=== PATIENT | male | born 1995 | race Caucasian/White ===

== ENCOUNTER 2020-04-26 08:20 | Emergency (ER) | payer BC, SELFPAY ==
[2020-04-26 08:22] VITALS: BP 137/83; PULSE 88; RESP 18; TEMP 36.9; O2SAT 99; BMI 28.7
--- NOTE | 2020-04-26 08:31 | US_ITS ---
EXAMINATION: US SCROTUM CLINICAL INFORMATION: 24-year-old with scrotal pain. COMPARISON: None TECHNIQUE: A sonogram of the scrotum was performed assessing reno-scale appearance and color Doppler flow. Spectral Doppler analysis of the arterial and venous flow were performed in the testes bilaterally. FINDINGS: RIGHT: Right testicle measures 5.2 x 2.3 x 3.8 cm, volume 23.8 mL. No focal testicular parenchymal lesions are visualized. There is normal low resistance intratesticular waveform and presence of venous flow. No torsion. Right epididymal head is normal in size. No right hydrocele or varicocele is seen. Right epididymal color flow is unremarkable. LEFT: Left testicle measures 4.8 x 2.2 x 3.5 cm, volume 19.3 mL. No focal testicular parenchymal lesions are visualized. There is normal low resistance intratesticular waveform and presence of venous flow. No torsion. Left epididymal head is normal in size. No left hydrocele or varicocele is seen. Left epididymal Doppler flow is mildly increased. US/US scrotum IMPRESSION: 1. Normal bilateral testicles with normal low resistance waveforms. No torsion. 2. Mild increased color flow left epididymis which may suggest mild epididymitis. No epididymal enlargement or hydrocele.
--- NOTE | 2020-04-26 08:31 | ED_ITS ---
HPI - Male Genitourinary General Chief complaint: Urogenital-Male Stated complaint: testicular pain Time Seen by Provider: 04/26/20 08:28 Source: patient Mode of arrival: ambulatory Limitations: no limitations History of Present Illness HPI Narrative: 24 y/o healthy male presenting with testicular pain x2 days. He states he noticed discomfort in his right testicle while he was at work 2 days ago. Described as a constant, dull ache. The pain then migrated to his left testicle and is bilateral. He noticed a fullness at the base of his scrotum. Denies lesions or mass. No urinary symptoms. He is sexually active with his only. No hx testicular pain in the past. No hx STD. MD Complaint: testicle pain Onset (ago): day(s) (2) Duration: constant Location: right testicle and left testicle Severity: moderate Severity scale (1-10): 5 Quality: aching and dull Relieving factors: none Exacerbating factors: palpation and movement Associated symptoms: Reports denies other symptoms Related Data Sexually active: Yes Previous Rx's Medication Instructions Recorded levofloxacin 500 mg PO DAILY 10 Days #10 tab 04/26/20 Allergies Allergy/AdvReac Type Severity Reaction Status Date / Time No Known Allergies Allergy Unverified 12/22/19 16:25 Review of Systems Review of Systems: Constitutional: No Fever, No Chills Gastrointestinal: No Nausea, No Vomiting, No Diarrhea, No abdominal Pain Genitourinary: No Dysuria, No Urinary Frequency, No Hematuria, +testicular pain Musculoskeletal: No joint pain, No Myalgias Skin: No Skin Lesions, No rash Heme/Lymph: No Bruising, No Lymphadenopathy Endocrine: No Polyuria, No Polydipsia PMFSH Past Medical History Attestation statement: The following information was validated with the patient. Medical History ADHD Depression Social History Social History Advance Directives: No Advance Directives Information Provided: No Physical Exam Vital Signs: Vital Signs: Last Vital Signs Temp 98.4 F 04/26/20 08:22 Pulse 88 04/26/20 08:22 Resp 18 04/26/20 08:22 BP 137/83 04/26/20 08:22 Pulse Ox 99 04/26/20 08:22 Body Mass Index 28.7 Appearance: Alert. Oriented X3. No acute distress. Eyes: Normal inspection ENT: Pharynx normal. Neck: Normal inspection. Neck supple. CVS: Normal heart rate and rhythm. Pulses normal. Respiratory: No respiratory distress. Breath sounds normal. Abdomen: Soft and nontender. +BS x4 : normal inspection of genitalia, normal testicles without mass or tenderness, no epididymus tenderness, foreskin easily retacts without penile discharge. no inguinal hernias appreciated. Skin: Skin warm and dry. Normal skin color. Normal skin turgor. No rashes. Extremities: No lower extremity edema. Neuro: Oriented X 3. No motor deficit. No sensory deficit. Course Course Course Narrative: 24 y/o male presenting with bilateral testicular pain x2 days. Doubt torsion. Low suspicion for STI. Will check UA, CT/NG and scrotal U/S. Reevaluation(s) Reevaluation #1: UA negative. Sctoral U/S showing 1. Normal bilateral testicles with normal low resistance waveforms. No torsion. 2. Mild increased color flow left epididymis which may suggest mild epididymitis. No epididymal enlargement or hydrocele. Low suspicion for CT/NG - will treat with Levaquin. CT/NG PCR urine was sent, if results positive will call the patient and treat accordingly. He is agreeable with plan. MDM - Male Genitourinary Differential Diagnosis Differential diagnosis: Likely urinary tract infection, urethritis, epididymitis, prostatitis and inguinal hernia Lab Data Attestation: I reviewed the patient's lab results. Labs: Lab Results 04/26/20 Range/Units 09:26 Urine Color YELLOW Urine Appearance CLEAR Urine pH 6.5 (5.0-8.0) Ur Specific [place] 1.025 (1.005-1.025) Urine Protein NEG (NEG-TRACE) MG/DL Urine Glucose (UA) NEG (NEG) MG/DL Urine Ketones NEG (NEG) MG/DL Urine Blood NEG (NEG) Urine Nitrite NEG (NEG) Ur Leukocyte Esterase NEG (NEG) Critical Care Time Critical Care Time Critical Care Time: No Discharge Plan Discharge Clinical Impression: Epididymitis Patient Disposition: Home, Self-Care Instructions: Epididymitis (ED) Additional Instructions: Your ultrasound today showed inflammation of your left epididymitis which is likely caused by an infection. You are being started on antibiotics for this. Take Motrin as needed for discomfort. You can apply ice to the area as needed. Prescriptions: New levofloxacin 500 mg tablet 500 mg PO DAILY 10 Days Qty: 10 RF: 0 Referrals: Deandre Corral MD [Physician] - 2 days (epididymitis)
--- NOTE | 2020-04-26 08:31 | US_ITS ---
EXAMINATION: US SCROTUM CLINICAL INFORMATION: 24-year-old with scrotal pain. COMPARISON: None TECHNIQUE: A sonogram of the scrotum was performed assessing reno-scale appearance and color Doppler flow. Spectral Doppler analysis of the arterial and venous flow were performed in the testes bilaterally. FINDINGS: RIGHT: Right testicle measures 5.2 x 2.3 x 3.8 cm, volume 23.8 mL. No focal testicular parenchymal lesions are visualized. There is normal low resistance intratesticular waveform and presence of venous flow. No torsion. Right epididymal head is normal in size. No right hydrocele or varicocele is seen. Right epididymal color flow is unremarkable. LEFT: Left testicle measures 4.8 x 2.2 x 3.5 cm, volume 19.3 mL. No focal testicular parenchymal lesions are visualized. There is normal low resistance intratesticular waveform and presence of venous flow. No torsion. Left epididymal head is normal in size. No left hydrocele or varicocele is seen. Left epididymal Doppler flow is mildly increased. US/US scrotum doppler IMPRESSION: 1. Normal bilateral testicles with normal low resistance waveforms. No torsion. 2. Mild increased color flow left epididymis which may suggest mild epididymitis. No epididymal enlargement or hydrocele.
[2020-04-26 09:36] LABS: Glucose Urine UA NEG (NEG); Leukocyte Esterase Urine NEG (NEG); Nitrite Urine NEG (NEG); PH 6.5 (5.0-8.0); Specific Gravity - Urine 1.025 (1.005-1.025); Urine Blood NEG (NEG); Urine Ketones NEG (NEG); Urine Protein NEG (NEG-TRACE)
[2020-04-26 09:37] LABS: Appearance Urine CLEAR; Color Urine YELLOW
[2020-04-27 18:32] LABS: C. trachomatis RNA TMA NOT DETECTED (NOT DETECTED); N. gonorrhoeae RNA TMA NOT DETECTED (NOT DETECTED)
== END 2020-04-26 11:27 | disposition home or self-care (01) ==
PROVIDERS: Physician Assistant; Emergency Provider Emergency Medicine Emergency Medical Services; PCP Internal Medicine
DX: N45.1 Epididymitis (principal); N50.812 Left testicular pain; N50.811 Right testicular pain; R60.0 Localized edema
CPT/HCPCS: 36415; 76870; 81003; 87491; 87591; 93975; 99283; 99284

== ENCOUNTER 2024-04-20 09:13 | Outpatient (REF) | payer BC, SELFPAY ==
--- NOTE | ~2024-04-20 | XR_ITS ---
EXAMINATION: XR TOES 2 OR MORE VIEWS RIGHT HISTORY: right great toe pain COMPARISON: There are no prior studies available for comparison. FINDINGS: Four views of the right great toe are submitted. Osseous mineralization is normal. There is no fracture or dislocation. The joint spaces are preserved. The soft tissues are unremarkable. XR/XR toe RT min 2V IMPRESSION: Unremarkable examination of the right great toe. Electronically signed by: Guevara Muñoz MD 04/21/2024 09:27 AM [facility]
== END 2024-04-20 09:14 | disposition home or self-care (01) ==
LOC: HO.XRAY 09:13
PROVIDERS: PCP Physician Assistant; Visit Provider Physician Assistant
DX: M79.674 Pain in right toe(s) (principal)
CPT/HCPCS: 73660

== ENCOUNTER → 2024-04-20 09:30 | Outpatient (BNV) | payer BC, SELFPAY | PROVIDERS: PCP Physician Assistant; Visit Provider Radiology Diagnostic Radiology | DX: M79.674 Pain in right toe(s) (principal) | CPT/HCPCS: 73660 ==